=== PATIENT | male | born 1995 | race Two or more races ===

== ENCOUNTER 2021-05-26 11:05 | Emergency (ER) | payer OTHER ==
[~2021-05-26] VITALS: Ht 172.7 cm; Wt 83.9 kg
[~2021-05-26 11:05] MED LIST: ALBUTEROL17 G1; AUGMENTIN1 TAB.CHEW; DESPEC LIQUID473 ML; PULMICORT1 MG/2 ML
[2021-05-26] MEDS ORDERED: IBU600 MG PO (18:07)
== END 2021-05-26 18:48 ==
LOC: ER 11:05
DX: R51.9 Headache, unspecified (principal); R11.0 Nausea; R11.10 Vomiting, unspecified

== ENCOUNTER 2022-10-06 11:15 | Emergency (ER) | payer OTHER ==
[~2022-10-06] VITALS: Ht 175.3 cm; Wt 83.0 kg
[~2022-10-06 11:15] MED LIST changes: +IBU600 MG PO
[2022-10-06] MEDS ORDERED: KETO10TA2 PO (14:53)
[2022-10-06] MEDS ORDERED: NORFLEX100MG PO (14:53)
== END 2022-10-06 14:58 | disposition home or self-care (01) ==
LOC: ER 11:15
DX: M54.2 Cervicalgia (principal); V43.52XA Car driver injured in collision with other type car in traffic accident, initial encounter; Y93.I9 Activity, other involving external motion; Y92.413 State road as the place of occurrence of the external cause